=== PATIENT | female | born 1985 | race Caucasian/White ===

== ENCOUNTER 2018-04-22 08:43 | Inpatient (IN) | payer OTHER ==
[~2018-04-22] VITALS: Ht 160 cm; Wt 73.0 kg
[~2018-04-22 08:43] MED LIST: DOCU-131 PO; HYDR-3237 PO; IBUP-1222 PO; PREN1TAB60 PO
[2018-04-22] MEDS ORDERED: OXYTOCIN 30U/ 0.9% NaCL 500ML 500 ML IV SCH (10:11)
[2018-04-22] MEDS ORDERED: LACTATED RINGERS 1,000 ML IV SCH ×2 (10:11→16:00)
[2018-04-22] MEDS ORDERED: SODIUM CITRATE/CITRIC ACID 30 ML UDC PO ONE (10:30)
[2018-04-22] MEDS ORDERED: LACTATED RINGERS 1,000 ML IVBOLUS ONE (10:30)
[2018-04-22] MEDS ORDERED: METOCLOPRAMIDE 5 MG/ML, 2ML IV ONE (10:30)
[2018-04-22] MEDS ORDERED: PLEASE ENTER HEIGHT AND WEIGHT MC SCH (10:30)
[2018-04-22 10:56] VITALS: BP 121/66
[2018-04-22 11:00] LABS: BASOPHILS # (AUTO) 0.02 x10^3/uL (0-0.1); BASOPHILS % (AUTO) 0 % (0-1); EOSINOPHILS # (AUTO) 0.12 x10^3/uL (0-0.4); EOSINOPHILS % (AUTO) 1 % (1-7); LYMPHOCYTES # (AUTO) 1.75 x10^3/uL (1-3.4); LYMPHOCYTES % (AUTO) 16 % (22-44); MD NO; MEAN CORPUSCULAR HEMOGLOBIN 30.7 pg (27.0-34.8); MEAN CORPUSCULAR HGB CONC 32.9 g/dL (32.4-35.8); MEAN CORPUSCULAR VOLUME 93.2 fL (80-100); MONOCYTES # (AUTO) 0.57 x10^3/uL (0.2-0.8); MONOCYTES % (AUTO) 5 % (2-9); NEUTROPHILS # (AUTO) 8.62 x10^3/uL (1.8-6.8); NEUTROPHILS % (AUTO) 78 % (42-75); PLATELET COUNT 331 x10^3/uL (130-400); RED BLOOD COUNT 3.83 x10^6/uL (3.82-5.3); RED CELL DISTRIBUTION WIDTH 13.9 % (9.6-15.2)
[2018-04-22] MEDS ORDERED: NEWBORN KIT ONE (11:15)
[2018-04-22] MEDS ORDERED: PROMETHAZINE 25 MG/ML, 1ML IV PRN (11:30)
[2018-04-22] MEDS ORDERED: ONDANSETRON 2MG/ML, 2ML IVPush PRN ×2 (11:30→19:00)
[2018-04-22] MEDS ORDERED: MEPERIDINE/PF 25MG/0.5ML IVPush PRN (11:30)
[2018-04-22] MEDS ORDERED: EPHEDRINE 50 MG/ML, 1ML IVPush PRN ×2 (11:30→19:00)
[2018-04-22] MEDS ORDERED: HYDROmorphone 2 MG/ML, 1ML IVPush PRN (11:30)
[2018-04-22] MEDS ORDERED: LABETALOL 5MG/ML, 20ML IV PRN (11:30)
[2018-04-22] MEDS ORDERED: FENTANYL PF 100 MCG/2ML IV PRN (11:30)
[2018-04-22] MEDS ORDERED: hydrALAzine 20 MG/ML, 1ML IV PRN (11:30)
[2018-04-22] MEDS ORDERED: OXYcodone 5 MG/5 ML ORAL.SOL UDC PO PRN (11:30)
[2018-04-22] MEDS ORDERED: MIDAZOLAM 1 MG/ML, 2ML IV PRN (11:30)
[2018-04-22] MEDS ORDERED: ALBUTEROL SULFATE 2.5 MG/3 ML NPPB PRN (11:30)
[2018-04-22] MEDS ORDERED: HYDROcodone/APAP 7.5-325MG/15ML UDC PO PRN (11:30)
[2018-04-22] MEDS ORDERED: SODIUM CITRATE/CITRIC ACID 30 ML UDC ONE (11:31)
[2018-04-22] MEDS ORDERED: METOCLOPRAMIDE 5 MG/ML, 2ML ONE (11:32)
[2018-04-22] MEDS ORDERED: EPHEDRINE 50 MG/ML, 1ML ONE (11:42)
[2018-04-22] MEDS ORDERED: DEXAMETHASONE 4 MG/ML, 1ML ONE (11:42)
[2018-04-22] MEDS ORDERED: FENTANYL PF 100 MCG/2ML ONE (11:42)
[2018-04-22] MEDS ORDERED: OXYTOCIN 10 UNITS/ML, 1ML ONE (11:42)
[2018-04-22] MEDS ORDERED: KETOROLAC 30 MG/1 ML ONE (11:42)
[2018-04-22] MEDS ORDERED: PHENYLEPHRINE 10 MG/ML ONE (11:42)
[2018-04-22] MEDS ORDERED: ONDANSETRON 2MG/ML, 2ML ONE (11:42)
[2018-04-22] MEDS ORDERED: CEFAZOLIN 1,000 MG ONE (11:42)
[2018-04-22] MEDS ORDERED: morphine SULFATE/PF 1 MG/ML, 10ML ONE (11:44)
[2018-04-22] MEDS ORDERED: OXYTOCIN 30U/ 0.9% NaCL 500ML 500 ML ONE (11:45)
[2018-04-22] MEDS: LACTATED RINGERS 1,000 ML IV SCH ×4 (13:21→23:21)
[2018-04-22] MEDS: OXYTOCIN 30U/ 0.9% NaCL 500ML 500 ML IV SCH ×2 (13:21→23:21)
[2018-04-22] MEDS ORDERED: ACETAMINOPHEN 325 MG TABLET PO PRN ×2 (13:30)
[2018-04-22] MEDS ORDERED: HYDROcodone/APAP 5/325 TABLET PO PRN ×2 (13:30→20:30)
[2018-04-22] MEDS ORDERED: SIMETHICONE 80 MG CHEW TAB PO PRN (13:30)
[2018-04-22] MEDS ORDERED: CALCIUM CARBONATE 500 MG TAB.CHEW PO PRN (13:30)
[2018-04-22] MEDS ORDERED: MISOPROSTOL 200 MCG TABLET PR PRN (13:30)
[2018-04-22] MEDS ORDERED: BISACODYL 10 MG SUPP PR PRN (13:30)
[2018-04-22] MEDS: KETOROLAC 30 MG/1 ML IV SCH ×2 (13:30→19:25)
[2018-04-22] MEDS ORDERED: ONDANSETRON 2MG/ML, 2ML IV PRN (13:30)
[2018-04-22 16:11] VITALS: BP 112/68
[2018-04-22] MEDS ORDERED: FENTANYL PF 100 MCG/2ML IVPush PRN (19:00)
[2018-04-22] MEDS ORDERED: DIPHENHYDRAMINE 50 MG/ML, 1ML IV PRN (19:00)
[2018-04-22] MEDS ORDERED: NO SEDATIVES, TRANQUILIZERS OR ANTIEMETICS XX SCH (19:00)
[2018-04-22] MEDS ORDERED: OXYcodone/APAP 5/325MG TABLET PO PRN (19:00)
[2018-04-22] MEDS ORDERED: NALOXONE 0.4 MG/ML, 1ML IV PRN ×3 (19:00)
[2018-04-22 20:37] LABS: BASOPHILS # (AUTO) 0.04 x10^3/uL (0-0.1); BASOPHILS % (AUTO) 0 % (0-1); EOSINOPHILS % (AUTO) 0 % (1-7); LYMPHOCYTES # (AUTO) 1.49 x10^3/uL (1-3.4); LYMPHOCYTES % (AUTO) 8 % (22-44); MD NO; MEAN CORPUSCULAR HEMOGLOBIN 31.8 pg (27.0-34.8); MEAN CORPUSCULAR HGB CONC 33.8 g/dL (32.4-35.8); MEAN CORPUSCULAR VOLUME 94.1 fL (80-100); MEAN PLATELET VOLUME 8.1 fL (7.4-10.4); MONOCYTES # (AUTO) 0.72 x10^3/uL (0.2-0.8); MONOCYTES % (AUTO) 4 % (2-9); NEUTROPHILS # (AUTO) 16.67 x10^3/uL (1.8-6.8); NEUTROPHILS % (AUTO) 88 % (42-75); PLATELET COUNT 351 x10^3/uL (130-400); RED BLOOD COUNT 3.58 x10^6/uL (3.82-5.3); RED CELL DISTRIBUTION WIDTH 13.3 % (9.6-15.2)
[2018-04-22 20:50] VITALS: BP 116/73
[2018-04-23] VITALS: BP 110/67
[2018-04-23] MEDS ORDERED: RHOGAM FROM BLOOD BANK 1 NOTE EA IM/IV ONE
[2018-04-23] MEDS: KETOROLAC 30 MG/1 ML IV SCH ×2 (01:19→07:25)
[2018-04-23 04:30] VITALS: BP 99/61
[2018-04-23] MEDS: LACTATED RINGERS 1,000 ML IV SCH ×5 (05:14→21:21)
[2018-04-23] MEDS: PRENATAL VIT/IRON/FA 1 EACH TABLET PO SCH (07:25)
[2018-04-23] MEDS: DOCUSATE 100 MG CAPSULE PO PRN (07:26)
[2018-04-23 07:30] VITALS: BP 104/69
[2018-04-23] MEDS: OXYTOCIN 30U/ 0.9% NaCL 500ML 500 ML IV SCH ×2 (09:21→19:21)
[2018-04-23] MEDS: IBUPROFEN 600 MG TABLET PO PRN ×2 (13:45→20:07)
[2018-04-23 19:30] VITALS: BP 111/69
[2018-04-23] MEDS: HYDROcodone/APAP 5/325 TABLET PO PRN (20:07)
[2018-04-24] MEDS: DOCUSATE 100 MG CAPSULE PO PRN ×2 (00:23→07:23)
[2018-04-24] MEDS: HYDROcodone/APAP 5/325 TABLET PO PRN ×3 (00:23→04:53)
[2018-04-24] MEDS: IBUPROFEN 600 MG TABLET PO PRN ×2 (02:12→07:23)
[2018-04-24] MEDS: OXYTOCIN 30U/ 0.9% NaCL 500ML 500 ML IV SCH (02:37)
[2018-04-24] MEDS: LACTATED RINGERS 1,000 ML IV SCH ×2 (02:37)
[2018-04-24] MEDS: PRENATAL VIT/IRON/FA 1 EACH TABLET PO SCH (07:22)
[2018-04-24 07:46] VITALS: BP 118/75
== END 2018-04-24 13:31 | disposition home or self-care (01) | DRG 785 ==
LOC: LDIP 10:07 → 2NW 15:28
PROVIDERS: ADMIT Obstetrics & Gynecology; ATTEND Obstetrics & Gynecology
PROC: 10D00Z1 Extraction of Products of Conception, Low, Open Approach (ICD-10-PCS; principal; 2018-04-22)
PROC: 0UB70ZZ Excision of Bilateral Fallopian Tubes, Open Approach (ICD-10-PCS; 2018-04-22)
PROC: 30233S1 Transfusion of Nonautologous Globulin into Peripheral Vein, Percutaneous Approach (ICD-10-PCS; 2018-04-23)
DX: O34.211 Maternal care for low transverse scar from previous cesarean delivery (principal); Z3A.39 39 weeks gestation of pregnancy; Z37.0 Single live birth; O99.52 Diseases of the respiratory system complicating childbirth; J45.909 Unspecified asthma, uncomplicated; Z30.2 Encounter for sterilization
CPT/HCPCS: 36415; J2790; 85025; 85461; 86850; 86900; 88302; G0378; J0690; J1100; J1885; J2274; J2405; J3010; J2370; J2590; J2765; J7120

== ENCOUNTER 2018-04-27 14:41 | Emergency (ER) | payer OTHER ==
[~2018-04-27] VITALS: Ht 160 cm; Wt 68.9 kg
[2018-04-27 14:46] VITALS: BP 144/88
[2018-04-27 15:17] LABS: BASOPHILS # (AUTO) 0.05 x10^3/uL (0-0.1); BASOPHILS % (AUTO) 1 % (0-1); EOSINOPHILS # (AUTO) 0.27 x10^3/uL (0-0.4); EOSINOPHILS % (AUTO) 3 % (1-7); LYMPHOCYTES # (AUTO) 1.86 x10^3/uL (1-3.4); LYMPHOCYTES % (AUTO) 21 % (22-44); MD NO; MEAN CORPUSCULAR HEMOGLOBIN 31.4 pg (27.0-34.8); MEAN CORPUSCULAR HGB CONC 33.5 g/dL (32.4-35.8); MEAN CORPUSCULAR VOLUME 93.6 fL (80-100); MEAN PLATELET VOLUME 7.6 fL (7.4-10.4); MONOCYTES # (AUTO) 0.35 x10^3/uL (0.2-0.8); MONOCYTES % (AUTO) 4 % (2-9); NEUTROPHILS % (AUTO) 71 % (42-75); PLATELET COUNT 465 x10^3/uL (130-400); RED BLOOD COUNT 4.19 x10^6/uL (3.82-5.3); RED CELL DISTRIBUTION WIDTH 13.3 % (9.6-15.2)
[2018-04-27 15:28] LABS: ALBUMIN 3.1 g/dL (3.4-5.0); ANION GAP 7 mmol/L (5-15); CALCIUM 9.7 mg/dL (8.5-10.1); CHLORIDE 112 mmol/L (98-107); CREATININE 0.67 mg/dL (0.55-1.02)
== END 2018-04-27 17:03 | disposition left against medical advice (07) ==
LOC: ED 16:40
DX: R42 Dizziness and giddiness (principal)
CPT/HCPCS: 36415; 70450; 80048; 82040; 85025; 93005; 99284

== ENCOUNTER 2018-04-30 15:44 | Emergency (ER) | payer OTHER ==
[~2018-04-30] VITALS: Ht 160 cm; Wt 65.0 kg
[2018-04-30 16:30] LABS: BASOPHILS # (AUTO) 0.09 x10^3/uL (0-0.1); BASOPHILS % (AUTO) 1 % (0-1); EOSINOPHILS # (AUTO) 0.44 x10^3/uL (0-0.4); EOSINOPHILS % (AUTO) 5 % (1-7); LYMPHOCYTES # (AUTO) 2.28 x10^3/uL (1-3.4); LYMPHOCYTES % (AUTO) 24 % (22-44); MD NO; MEAN CORPUSCULAR HEMOGLOBIN 31.4 pg (27.0-34.8); MEAN CORPUSCULAR HGB CONC 33.5 g/dL (32.4-35.8); MEAN CORPUSCULAR VOLUME 93.5 fL (80-100); MEAN PLATELET VOLUME 7.5 fL (7.4-10.4); MONOCYTES # (AUTO) 0.45 x10^3/uL (0.2-0.8); MONOCYTES % (AUTO) 5 % (2-9); NEUTROPHILS # (AUTO) 6.31 x10^3/uL (1.8-6.8); NEUTROPHILS % (AUTO) 66 % (42-75); PLATELET COUNT 532 x10^3/uL (130-400); RED BLOOD COUNT 4.32 x10^6/uL (3.82-5.3); RED CELL DISTRIBUTION WIDTH 13.2 % (9.6-15.2)
[2018-04-30] MEDS ORDERED: MECLIZINE CHEWABLE 25 MG TAB PO ONE (16:30)
[2018-04-30 16:41] LABS: ALBUMIN 3.6 g/dL (3.4-5.0); ANION GAP 6 mmol/L (5-15); CALCIUM 9.1 mg/dL (8.5-10.1); CHLORIDE 114 mmol/L (98-107)
[2018-04-30 16:44] LABS: ALANINE AMINOTRANSFERASE 23 U/L (12-78); ALKALINE PHOSPHATASE 97 U/L (45-117); BILIRUBIN,TOTAL 0.3 mg/dL (0.2-1.0); CREATININE 0.83 mg/dL (0.55-1.02); TOTAL PROTEIN 7.4 g/dL (6.4-8.2)
[2018-04-30 18:16] VITALS: BP 133/87
== END 2018-04-30 18:52 | disposition left against medical advice (07) ==
LOC: ED 18:46
DX: R42 Dizziness and giddiness (principal); Z98.890 Other specified postprocedural states
CPT/HCPCS: 36415; 80053; 85025; 93005; 99284

== ENCOUNTER 2019-06-08 23:32 | Emergency (ER) | payer BC, OTHER ==
[~2019-06-08] VITALS: Ht 160 cm; Wt 49.1 kg
[2019-06-09 00:06] LABS: BASOPHILS # (AUTO) 0.01 x10^3/uL (0-0.1); BASOPHILS % (AUTO) 0 % (0-1); EOSINOPHILS # (AUTO) 0.22 x10^3/uL (0-0.4); EOSINOPHILS % (AUTO) 2 % (1-7); LYMPHOCYTES # (AUTO) 3.09 x10^3/uL (1-3.4); LYMPHOCYTES % (AUTO) 29 % (22-44); MD NO; MEAN CORPUSCULAR HEMOGLOBIN 30.5 pg (27.0-34.8); MEAN CORPUSCULAR HGB CONC 33.1 g/dL (32.4-35.8); MEAN CORPUSCULAR VOLUME 92.2 fL (80-100); MEAN PLATELET VOLUME 8.1 fL (7.4-10.4); MONOCYTES # (AUTO) 0.51 x10^3/uL (0.2-0.8); MONOCYTES % (AUTO) 5 % (2-9); NEUTROPHILS # (AUTO) 6.67 x10^3/uL (1.8-6.8); NEUTROPHILS % (AUTO) 64 % (42-75); PLATELET COUNT 343 x10^3/uL (130-400); RED BLOOD COUNT 4.36 x10^6/uL (3.82-5.3); RED CELL DISTRIBUTION WIDTH 13.4 % (9.6-15.2)
--- NOTE | 2019-06-09 00:06 | NUR ---
PT HERE FOR LEFT FLANK PAIN. UA SENT TO LAB. PT TO US
[2019-06-09 00:16] LABS: ALBUMIN 4.3 g/dL (3.4-5.0); ANION GAP 6 mmol/L (5-15); CALCIUM 9.2 mg/dL (8.5-10.1); CHLORIDE 109 mmol/L (98-107); CREATININE 0.86 mg/dL (0.55-1.02)
[2019-06-09 00:16] LABS: HCG UR SG 1.028 (1.003-1.030); MICROSCOPIC AUTO
[2019-06-09 00:17] LABS: CULTURE INDICATED? YES
--- NOTE | 2019-06-09 00:34 | NUR ---
PT BACK FROM US. PT RESTING. VSS. CALL LIGHT IN REACH
--- NOTE | 2019-06-09 00:47 | NUR ---
PT TO CT
--- NOTE | 2019-06-09 00:58 | NUR ---
RECEIVED REPORT FROM RANDY CHIU TO ASSUME CARE. PT. BACK FROM CT; AWAITING READ. ALL SAFETY MEASURES OBSERVED.
[2019-06-09 02:07] VITALS: BP 101/56
--- NOTE | 2019-06-09 02:07 | NUR ---
DR. OJEDA AT TO DISCUSS D/C PLAN WITH PT.
== END 2019-06-09 02:13 | disposition home or self-care (01) ==
LOC: ED 23:45
DX: N20.2 Calculus of kidney with calculus of ureter (principal); R10.30 Lower abdominal pain, unspecified; F17.200 Nicotine dependence, unspecified, uncomplicated
CPT/HCPCS: 36415; 74176; 76830; 80048; 81001; 81025; 82040; 85025; 87086; 99285

== ENCOUNTER 2020-03-10 14:05 | Emergency (ER) | payer BC ==
[~2020-03-10] VITALS: Ht 160 cm; Wt 50.9 kg
--- NOTE | 2020-03-10 15:02 | NUR ---
washer off: pt from lobby to room 36
--- NOTE | 2020-03-10 15:12 | NUR ---
BREAK RN: PT TO ROOM & CHANGED INTO GOWN, MONITORS IN PLACE, PT UPRIGHT ON GURNEY & DENIES PAIN AT THIS TIME, NAD, RESPONDS APPROP TO STAFF, COMFORT MEASURES PROVDED, FRIEND AT BS, CALL LIGHT WITHIN REACH.
[2020-03-10 15:14] LABS: BASOPHILS % (AUTO) 1 % (0-1); EOSINOPHILS % (AUTO) 2 % (1-7); LYMPHOCYTES % (AUTO) 39 % (22-44); MEAN CORPUSCULAR HEMOGLOBIN 31.1 pg (27.0-34.8); MONOCYTES % (AUTO) 6 % (2-9); NEUTROPHILS % (AUTO) 52 % (42-75); PLATELET COUNT 357 x10^3/uL (130-400); RED CELL DISTRIBUTION WIDTH 12.7 % (9.6-15.2)
[2020-03-10 15:18] LABS: ALBUMIN 4.5 g/dL (3.4-5.0); ANION GAP 4 mmol/L (5-15); CALCIUM 9.6 mg/dL (8.5-10.1); CHLORIDE 108 mmol/L (98-107); MD NO
[2020-03-10 15:24] LABS: ALANINE AMINOTRANSFERASE 26 U/L (12-78); ALKALINE PHOSPHATASE 78 U/L (45-117); BILIRUBIN,TOTAL 0.5 mg/dL (0.2-1.0); TROPONIN I < 0.015 ng/mL (0.000-0.045)
--- NOTE | 2020-03-10 16:03 | NUR ---
FIRST CONTACT W/ PT. PT AMBULATED TO THE BR W/ A STEADY GAIT. URINE CUP PROVIDED.
[2020-03-10 16:31] LABS: MICROSCOPIC AUTO
--- NOTE | 2020-03-10 17:09 | NUR ---
PT RESTING ON GURNEY W/ CALL LIGHT IN REACH AND SIDE RAILS UPX2. VSS, NADN. AWAITING DC [facility].
[2020-03-10 17:47] VITALS: BP 109/72
--- NOTE | 2020-03-10 17:54 | NUR ---
Patient given discharge instructions and they have confirmed that they understand the instructions. Patient ambulatory with steady gait.
== END 2020-03-10 18:03 | disposition home or self-care (01) ==
LOC: ED 16:22
DX: K29.00 Acute gastritis without bleeding (principal); R20.0 Anesthesia of skin; R10.9 Unspecified abdominal pain; R07.89 Other chest pain; F17.200 Nicotine dependence, unspecified, uncomplicated
CPT/HCPCS: 36415; 71046; 80053; 81001; 84484; 85025; 87086; 93005; 99285